=== PATIENT | male | born 2000 | race Two or more races ===

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

== ENCOUNTER 2021-01-27 22:09 | Emergency (ER) | payer SELFPAY ==
[~2021-01-27] VITALS: Ht 175.3 cm; Wt 83.5 kg
[2021-01-28 01:24] VITALS: BP 110/73
== END 2021-01-28 02:52 | disposition home or self-care (01) ==
LOC: ER 22:10
DX: S61.213A Laceration without foreign body of left middle finger without damage to nail, initial encounter (principal); W26.0XXA Contact with knife, initial encounter; Y93.89 Activity, other specified; Y92.89 Other specified places as the place of occurrence of the external cause; Y99.8 Other external cause status
CPT/HCPCS: 12002